=== PATIENT | female | born 1990 | race Caucasian/White ===

== ENCOUNTER → 2016-10-29 | Outpatient (CLI) | payer OTHER ==
[~2016-10-29] MED LIST: ACETAMINOPHEN325 MG PO; ALBUTEROL17 G1; ALBUTEROL17 G1 IH; ALBUTEROL17 GM; ALBUTEROL17 GM INH; AMOXICILLIN; AMOXICILLIN PO; AMOXICILLIN500 M1 PO; ASMANEX0.135 GM IH; AZITHROMYCIN250 MG PO; BACTRIM DS TABL1 TA1 DOB; CATAFLAM50 MG PO; CLINDAMYCIN HC300 MG PO; FLEXERIL PO; FLEXERIL10 M1 PO; FLEXERIL10 MG PO; IBUPROFEN PO; IBUPROFEN800 MG PO; KEFLEX250 M1 PO; LORTAB 5/500 TA1 TA1 PO; LORTAB ELIXIR15 ML DOB; MACROBID100 MG PO; MAGIC MOUTH WASH PO; MEDROL4 MG/DOSE- PO; NAPROSYN500 MG PO; ORUDIS75 M1 PO; PEN-VEE K PO; PREDNISONE; PREDNISONE PO; PRENATAL MULITV1 TAB PO; PULMICORT180 MCG/A1 INH; PYRIDIUM PO; ROBAXIN PO; SKELAXIN PO; TRAMADOL HCL50 M1 PO; TYLENOL #3 PO; VICODIN 5/1 TAB 5/50 PO; VOLTAREN75 MG PO; ZITHROMAX PO; ZYRTEC10 M2 PO; [UNRECOGNIZED DRUG - OTHER]
--- NOTE | ~2016-10-29 | CR117 ---
[facility] A Service of [facility] RADIOLOGY TEXT RESULTS PATIENT: ANIL PUENTE LOCATION: [facility] : [birth year] UNIT #: [id number] AGE: [address]: João Lee MD SEX: F ORDER DR: [id number] [address] [address] [id number] O MR#: [id number] Acc #: [id number] NAME: ANIL PUENET : 1990 SEX: F STUDY DATE/TIME: 10/29/2016 12:32 UNIT: [facility] ROOM: STUDY DESCRIPTION: CR Finger 2 View Thumb Rt Attending Physician: João Lee M.D. Referring Physician: João Lee M.D. Ordering Physician: João Lee M.D. Primary Care Physician: Sun Slaughter M.D. MEDICAL IMAGING REPORT This report is preliminary unless electronic signature is present. EXAM Right thumb series 10/29/2016 INDICATIONS Thumb pain and swelling in a 26-year-old female since October 22 after jamming it into the floor. Numbness and tingling. TECHNIQUE 3 views COMPARISON No comparison FINDINGS AP, lateral, and oblique projections of the hand show good mineralization with normal carpal, metacarpal, and phalangeal anatomy without indication of fracture, dislocation, or soft tissue radiopaque foreign body. IMPRESSION Normal hand. Dictated by... Anthony Lerma M.D. THIS IS AN ELECTRONICALLY VERIFIED REPORT Anthony Lerma M.D. at 10/29/2016 5:13 PM BENJAY/wayne TD: 10/29/2016 15:35 JOB #: [id number] [facility] A Service [facility] RADIOLOGY TEXT RESULTS PATIENT: ANIL PUENTE LOCATION: [facility] : [birth year] UNIT #: [id number] AGE: [address]: João Lee MD SEX: F ORDER DR: MEDICAL IMAGING REPORT Page 1 of 1
== END | disposition home or self-care (01) ==
LOC: SRAD 12:19
DX: M79.89 Other specified soft tissue disorders (principal); M79.644 Pain in right finger(s)
CPT/HCPCS: 73140

== ENCOUNTER 2017-02-28 19:38 | Emergency (ER) | payer OTHER ==
[~2017-02-28] VITALS: Ht 160 cm; Wt 77.1 kg
--- NOTE | ~2017-02-28 | CT4 ---
[facility]. [facility] A Service of [facility] RADIOLOGY TEXT RESULTS PATIENT: ANIL PUENTE LOCATION: SED : [birth year] UNIT #: [id number] AGE: [address]: LANI MARQUES SEX: F ORDER DR: [id number] [address] [address] [id number] E MR#: [id number] Acc #: [id number] NAME: ANIL PUENTE : 1990 SEX: F STUDY DATE/TIME: 02/28/2017 20:03 UNIT: SED ROOM: STUDY DESCRIPTION: CT Abd and Pelv Wo Cont Attending Physician: Lani Marques A.P.R.N. Ordering Physician: Lani Marques A.P.R.N. Primary Care Physician: Sun Slaughter M.D. MEDICAL IMAGING REPORT This report is preliminary unless electronic signature is present. EXAM CT abdomen and pelvis INDICATION Bilateral flank pain for 1 hour. Nausea. Pain with urination. TECHNIQUE CT of the abdomen and pelvis without contrast. Coronal and sagittal reconstructions were obtained. This CT examination was performed with one or more of the following radiation dose reduction techniques: automatic exposure control, adjustment of mA and/or kV according to patient size, and iterative reconstruction. COMPARISON CT abdomen and pelvis dated 06/09/2016. FINDINGS ABDOMEN: There are multiple bilateral nonobstructing renal calculi. No hydronephrosis. Noncontrast evaluation of the remaining solid abdominal organs are within normal limits. The bowel is not dilated. The gallbladder is not distended. The appendix is normal. PELVIS: Bladder is decompressed. The uterus is surgically absent. The left ovary may be surgically absent. Right ovary is unremarkable. No enlarged pelvic or inguinal lymph nodes. No acute osseous abnormalities. IMPRESSION Nonobstructing bilateral renal calculi. [facility]onephrosis [facility] Service of [facility] RADIOLOGY TEXT RESULTS PATIENT: ANIL PUENTE LOCATION: SED : [birth year] UNIT #: [id number] AGE: [address]: LANI MARQUES SEX: F ORDER DR: calculi. Dictated by... Justino Ramirez M.D. THIS IS AN ELECTRONICALLY VERIFIED REPORT Justino Ramirez M.D. at 03/02/2017 10:33 AM SHOBHA/elida TD: 03/01/2017 09:29 JOB #: [id number] MEDICAL IMAGING REPORT Page 1 of 1
[2017-02-28 20:45] LABS: BASOPHIL# 0.1 X10e3 (0-0.3); BASOPHIL% 1.1 % (0-2.5); EOSINOPHIL# 0.3 X10e3 (0-0.7); EOSINOPHIL% 2.7 % (0.0-7.0); HEMATOCRIT 45.2 % (35.0-45.0); HEMOGLOBIN 15.2 gm/dL (12.0-16.0); LYMPHOCYTE# 2.8 X10e3 (1.0-3.5); LYMPHOCYTE% 25.4 % (17.0-45.0); MEAN CELL VOLUME 83.4 FL (83-96); MEAN CORPUSCULAR HEMOGLOBIN 28.1 PG (28-34); MEAN CORPUSCULAR HGB CONC 33.7 g/dL (30-36); MEAN PLATELET VOLUME 7.7 FL (6.5-11.5); MONOCYTE# 0.8 X10e3 (0-1.0); MONOCYTE% 6.8 % (3.0-12.0); NEUTROPHIL# 7.1 X10e3 (1.5-7.1); PLATELET COUNT 327 X10e3 (140-420); RED BLOOD COUNT 5.42 X10e (3.90-5.30); RED CELL DISTRIBUTION WIDTH 13.7 % (11.0-15.5); WHITE BLOOD COUNT 11.1 X10e3 (4.0-10.5)
[2017-02-28 20:47] LABS: DIFF IND NO
[2017-02-28 21:01] LABS: ALBUMIN SERUM 4.9 g/dL (3.5-5.0); BILIRUBIN,TOTAL 0.7 mg/dL (0.2-2.0); BUN/CREATININE RATIO 16.25; CALCIUM SERUM 9.7 mg/dL (8.4-10.2); CREATININE SERUM 0.8 mg/dL (0.6-1.4); GLOM FILT RATE Estimated 100.4 mL/min (>60); POTASSIUM 3.9 mmol/L (3.5-5.1); PROTEIN TOTAL SERUM 8.4 g/dL (6.0-8.3)
[2017-02-28 21:02] LABS: URINE SOURCE CLEAN CATCH
[2017-02-28 21:04] LABS: URINE APPEARANCE CLEAR; URINE BLOOD TRACE-LYSED (NEG); URINE COLOR YELLOW; URINE GLUCOSE NEG (NORM); URINE KETONE TRACE (NEG); URINE LEUKOCYTE ESTERASE NEG (NEG); URINE NITRATE NEG (NEG); URINE PH 5.5 (5-8); URINE PROTEIN NEG (NEG); URINE SPECIFIC GRAVITY >=1.030 (1.003-1.035); URINE UROBILINOGEN 0.2 MG/DL (NORM)
[2017-02-28 21:05] LABS: MICRO INDICATED? YES; URINE BILIRUBIN NEG (NEG)
[2017-02-28 21:08] LABS: CULTURE INDICATED? NO; URINE BACTERIA NEG (NEG); URINE MUCUS PRESENT; URINE SQUAMOUS EPITHELIAL CELL OCCAS /[HPF]; URINE TRANSITIONAL EPI CELLS FEW /[HPF]; URINE WBC 0-2 /[HPF] (0-5)
== END 2017-02-28 22:20 | disposition home or self-care (01) ==
LOC: SED 19:38
PROVIDERS: Nurse Practitioner
DX: R10.9 Unspecified abdominal pain (principal); Z87.442 Personal history of urinary calculi; F17.200 Nicotine dependence, unspecified, uncomplicated; Z79.899 Other long term (current) drug therapy
CPT/HCPCS: 36415; 74176; 80053; 81003; 83690; 85025; 96361; 96374; 96375; 99284; J1885; J2405